=== PATIENT | male | born 1950 | race Caucasian/White ===

== ENCOUNTER → 2017-07-17 | Outpatient (CLI) | payer OTHER, MEDICAID | LOC: BHFA 09:30 | PROVIDERS: ATTEND Internal Medicine Cardiovascular Disease | DX: R06.02 Shortness of breath (principal); I10 Essential (primary) hypertension; R53.83 Other fatigue ==

== ENCOUNTER → 2018-02-24 | Outpatient (CLI) | payer OTHER, MEDICAID | LOC: SBRMNEURO 21:00 | PROVIDERS: ATTEND Internal Medicine Pulmonary Disease | DX: G47.39 Other sleep apnea (principal); G47.61 Periodic limb movement disorder ==